=== PATIENT | male | born 1995 | race Asian ===

== ENCOUNTER 2018-01-26 13:57 | Emergency (ER) | payer OTHER ==
[~2018-01-26] VITALS: Ht 170.2 cm; Wt 65.8 kg
[2018-01-26 13:59] VITALS: Ht 170.2 cm; Wt 65.8 kg
[2018-01-26 14:54] LABS: microscopic required? NO
[2018-01-26 15:11] LABS: urine erythrocyte NEGATIVE (NEGATIVE)
[2018-01-26 15:39] VITALS: BP 109/66
== END 2018-01-26 15:39 | disposition home or self-care (01) ==
LOC: ED 13:57
PROVIDERS: Emergency Medicine
DX: R30.0 Dysuria (principal); N48.89 Other specified disorders of penis
CPT/HCPCS: 87491; 87591; J0696